=== PATIENT | female | born 1945 | race Caucasian/White ===

== ENCOUNTER → 2016-08-05 | Outpatient (CLI) | payer BC, MEDICARE | END | disposition home or self-care (01) | LOC: GMAM 14:25 | PROVIDERS: ATTEND Family Medicine | DX: N39.0 Urinary tract infection, site not specified (principal) ==

== ENCOUNTER → 2016-11-02 | Outpatient (CLI) | payer BC, MEDICARE | END | disposition home or self-care (01) | LOC: GMAM 16:42 | PROVIDERS: ATTEND Family Medicine | DX: D64.9 Anemia, unspecified (principal); R50.9 Fever, unspecified ==

== ENCOUNTER → 2017-01-05 | Outpatient (CLI) | payer BC, MEDICARE ==
--- NOTE | 2017-01-05 18:14 | CT ---
EXAM DESCRIPTION: CT ABDOMEN AND PELVIS WITHOUT AND WITH CONTRAST CLINICAL HISTORY: GENERALIZED ABDOMINAL PAIN COMPARISON: None Available. TECHNIQUE: CT of the abdomen and pelvis are performed prior to and during IV bolus administration of 100 mL of Isovue 300. Oral contrast does not appear to been administered with a faint radiopaque material noted within the right colon only This exam was performed according to our departmental dose-optimization program, which includes automated exposure control, adjustment of the mA and/or kV according to patient size and/or use of iterative reconstruction technique. FINDINGS: The lung bases are clear and there is no evidence of free abdominal air or abdomen or pelvic fluid. Anastasia noncontrast imaging demonstrates surgical absence of the gallbladder and no evidence of renal obstruction or calculi. Left colonic diverticulosis is present without evidence of severe diverticulitis. Mild inflammatory changes pericolic in the left lateral pelvis suggest mild diverticulitis of the proximal descending colon. No perforation or phlegmon or abscess is seen. Venous imaging demonstrates a small hiatal hernia with a small normal spleen and mild diffuse fatty infiltration of the otherwise normal-appearing liver. The pancreas normally enhances and the aorta and retroperitoneum and vena cava are unremarkable. The kidneys normally enhance. Localized moderate inflammatory changes with colonic wall thickening and pericolic inflammation and modest diverticulosis consistent with focal reticulitis of the proximal sigmoid colon is present with diverticula noted both proximal and distal to this point. No drainable fluid collection is evident. The uterus is surgically absent. Delayed imaging demonstrates normal renal function with layering contrast in the bladder. Small bowel caliber is normal without evidence of bowel obstruction. Anterior abdominal wall is unremarkable grade 1 spondylolisthesis of L5 on S1 is evident without bony destructive changes. Sagittal and coronal reconstructions were not obtained on this study. IMPRESSION: 1. Localized changes of acute diverticulitis of the proximal sigmoid colon with colic and pericolic inflammation without drainable abscess or fluid collection or free abdominal air. Moderate diverticulosis of the remainder of the left side of the colon is noted. 2. Surgical absence of the gallbladder and fatty replaced liver very mild with a small retrocardiac hiatal hernia. 3. Surgical absence of the uterus without adnexal mass or pelvic fluid collection. Electronically signed by: Dhruv Way MD 01/05/2017 6:12 PM CDT
== END | disposition home or self-care (01) ==
LOC: GMA 15:57
PROVIDERS: ATTEND Physician Assistant
DX: R10.84 Generalized abdominal pain (principal)

== ENCOUNTER 2017-01-07 09:30 | Inpatient (IN) | payer BC, MEDICARE ==
--- NOTE | 2017-01-07 09:37 | HP ---
HISTORY OF PRESENT ILLNESS: This 71-year-old, white female was admitted to the hospital as a direct admit from Dr. Barreto's office because of worsening abdominal pain. She apparently awoke at 12:30 AM two nights ago with abdominal pain across the lower abdomen, more serious and more tender on the left side than the right. This has developed into decreased appetite as well as a temperature of 102 degrees as of yesterday. She was seen in the clinic later on the afternoon of the day of onset and had a CT scan of the abdomen because of the abdominal showing acute diverticulitis involving the proximal sigmoid colon. No evidence of rupture and no clinical evidence of bleeding was evident. She was started on Flagyl and Cipro p.o. as an outpatient in an effort to try to assist with the resolution. Her condition has subsequently become worse. Her white count has gone from 8,000 up to 13,000. She vomited earlier this morning after attempting to get some of her medicines down. Past history reveals the presence of diverticulosis on a previous CT scan and also documented with colonoscopy by Dr. Fletcher in 2014. The patient is admitted to the hospital having failed outpatient treatment and to have further investigation and supportive care with GI rest, IV supplementation and analgesia as needed. PAST MEDICAL HISTORY: 1. Hypertension. 2. Mini strokes in the past. She has had a workup for her strokes and has not showing anything other than that she is now taking Plavix and aspirin prophylactically. 3. Urinary tract infections in the past. PAST SURGICAL HISTORY: 1. Cholecystectomy four [address] Lowery. 2. Hysterectomy in 1984. 3. Tubal ligation in 1966. 4. Four pregnancies and three deliveries with one miscarriage. CURRENT MEDICATIONS: Please refer to the nursing list for a list of verified medications taken at home. ALLERGIES: NORCO, TRAMADOL. FAMILY HISTORY: Positive for pancreatic cancer as well as lung cancer and coronary artery disease. SOCIAL HISTORY: She works in an office. She stopped smoking in 1983. REVIEW OF SYSTEMS: GENERAL: Weight has been going up a little bit recently. Fever is noted with some associated chills. HEENT: Decreased hearing requiring hearing aids, but vision is good. LUNGS: Mild shortness of breath upon exertion. No significant cough or hemoptysis. CARDIOVASCULAR: No palpitations or chest pains. GASTROINTESTINAL: Lower abdominal pain, more on the left than the right. Decreased appetite. Nausea and vomiting worsening today even with outpatient treatment for diverticular disease. GENITOURINARY: History of urinary tract infections without any significant symptoms. NEUROLOGIC: No significant headaches, but she is a little more tired than usual. PHYSICAL EXAMINATION: General: Awake and alert. Mild distress with abdominal pain. HEENT: No significant abnormalities. NECK: Supple, without bruits. LUNGS: Clear without rhonchi. HEART: Regular rhythm without gallops. No chest wall tenderness. ABDOMEN: Very tender LLQ without rebound. No masses. Decreased bowel tones. No organomegaly. NEURO: Alert. Mild distress. No focal neuro deficits. LABORATORY: Laboratory studies are pending with most recent studies showing urinalysis with a trace of blood. C-reactive protein 1.7. Hemoglobin 11.3, white count up to 13.6 with 82% neutrophils. BUN 14, creatinine 0.7, sodium 139 , potassium 4, CO2 28. Glucose 101. RADIOLOGY: CT scan recently performed two days ago revealed localized involvement of the proximal sigmoid with diverticulitis without evidence of abscess formation or perforation at this time. Further followup suggested. ASSESSMENT: 1. Acute abdominal pain. 2. Acute diverticulitis noted on CT scan of two days ago, having failed outpatient therapy and requiring vigorous rest with fluid supplementation and parenteral antibiotic therapy in an effort to treat conservatively. 3. History of hypertension. 4. 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 5. Recent febrile illness. 6. Vomiting, onset earlier today, probably secondary to the diverticulitis. PLAN: We will continue supportive care. The patient placed NPO with ice chips. IV supplementation in the meantime and continue with parenteral Levaquin and Flagyl for conservative treatment. Condition discussed with Dr. Lowery and recheck in the morning. If abnormal x-rays are noted, then consider a repeat CT scan to further evaluate for complications of the diverticular process. #[id number] [facility]
[2017-01-07] MEDS ORDERED: LEVALBUTEROL NEBS 1.25 MG/3 ML VIAL INH PRN (10:57)
[2017-01-07] MEDS ORDERED: ACETAMINOPHEN SUPPOSITORY 650 MG PR PRN (10:57)
[2017-01-07] MEDS ORDERED: SODIUM CHLORIDE 0.9% (FLUSH) 10 ML SYG IV PRN (10:57)
[2017-01-07] MEDS ORDERED: IV SET AND CAP CHANGE INJ INJ SCH (11:00)
[2017-01-07] MEDS ORDERED: ALPRAZolam 0.25 MG TAB PO PRN (11:02)
[2017-01-07] MEDS ORDERED: SUCRALFATE 1 GM TAB PO SCH (11:30)
[2017-01-07] MEDS ORDERED: metroNIDAZOLE IV PREMIX 500MG 100 ML IVPB ONE ×2 (11:31→19:53)
[2017-01-07] MEDS: KCL 20 MEQ/NS 1,000 ML IVS PRN ×2 (11:44→22:11)
[2017-01-07] MEDS: metroNIDAZOLE IV PREMIX 500MG 500 MG in PREMIX BAG 1 BAG IVPB SCH ×2 (11:46→20:02)
[2017-01-07] MEDS: PANTOPRAZOLE SODIUM IV 40 MG VIAL IV SCH (11:48)
[2017-01-07] MEDS: ENOXAPARIN SODIUM 30 MG/0.3 ML SYG SUBCU SCH (11:53)
[2017-01-07] MEDS: HYDROmorphone HCL INJ 2 MG/ML VIAL IV PRN ×2 (12:15→22:00)
[2017-01-07] MEDS: ONDANSETRON INJ 4 MG/2 ML VIAL IV PRN ×2 (12:15→21:53)
[2017-01-07] MEDS ORDERED: levoFLOXacin 500MG IV 100 ML IVPB ONE (13:31)
[2017-01-07] MEDS: levoFLOXacin 500MG IV 500 MG in PREMIX BAG 1 BAG IVPB SCH (13:34)
--- NOTE | 2017-01-07 13:50 | PCM.CORE ---
Physician DVT/VTE - Prophylaxis Currently: Patient already on anticoagulation therapy - Nurse DVT Assessment & Total Each Risk Factor Represents 2 Points: Age 60-74 DVT Assessment Score: 2 - 3-4 High Risk Treatments: Sequential Compression Device
[2017-01-07] MEDS ORDERED: diphenhydrAMINE HCL 25 MG CAP PO PRN ×2 (17:36→17:41)
[2017-01-07] MEDS: KETOROLAC TROMETHAMINE INJ 30 MG/ML VIAL IV PRN (18:03)
[2017-01-08] MEDS ORDERED: metroNIDAZOLE IV PREMIX 500MG 100 ML IVPB ONE ×3 (02:51→19:26)
[2017-01-08] MEDS: metroNIDAZOLE IV PREMIX 500MG 500 MG in PREMIX BAG 1 BAG IVPB SCH ×3 (03:01→19:53)
[2017-01-08] MEDS: PANTOPRAZOLE SODIUM IV 40 MG VIAL IV SCH (05:48)
--- NOTE | 2017-01-08 06:36 | RAD ---
Procedure: XR CHEST 2 VIEWS Exam Date: 01/08/2017 Ordering Provider: GERARDO JUNE Clinical Indication: abd pain Comparison: 08/14/2013 Findings: Stable defibrillator. Cardiac silhouette: Normal Pulmonary vasculature : Normal Mediastinal contour: Normal Aortic contour: Aortic calcification Focal lung consolidation: None Pleural effusion: None. Biapical pleural scarring. Pneumothorax: None Acute bony or soft tissue abnormality: None Impression: 1. No acute abnormalities in the chest. Electronically signed by: Lars Forman MD 01/08/2017 6:35 AM CDT
--- NOTE | 2017-01-08 06:38 | RAD ---
Procedure: XR ABDOMEN 2 VIEWS SUPINE ERECT Exam Date: 01/08/2017 Ordering Provider: GERARDO UJNE MD Clinical Indication: diverticulosis Comparison: 01/05/2017 Findings: Cholecystectomy clips. There is no small or large bowel distention. There is no pneumoperitoneum. There are no suspicious calcifications. There is no acute skeletal abnormality. Scoliosis. Impression: 1. No acute findings. Electronically signed by: Lars Forman MD 01/08/2017 6:37 AM CDT
[2017-01-08] MEDS ORDERED: ACETAMINOPHEN 325 MG TAB PO PRN (08:38)
[2017-01-08] MEDS ORDERED: ACETAMINOPHEN 325 MG TAB ONE (08:39)
[2017-01-08] MEDS: KCL 20 MEQ/NS 1,000 ML IVS PRN ×2 (08:52→21:33)
[2017-01-08] MEDS: VALSARTAN 80 MG TAB PO SCH (09:11)
[2017-01-08] MEDS: SERTRALINE HCL 50 MG TAB PO SCH (09:12)
[2017-01-08] MEDS: ENOXAPARIN SODIUM 30 MG/0.3 ML SYG SUBCU SCH (09:12)
[2017-01-08] MEDS: ONDANSETRON INJ 4 MG/2 ML VIAL IV PRN (10:28)
[2017-01-08] MEDS: KETOROLAC TROMETHAMINE INJ 30 MG/ML VIAL IV PRN (10:31)
[2017-01-08] MEDS: HYDROmorphone HCL INJ 2 MG/ML VIAL IV PRN (11:32)
[2017-01-08] MEDS ORDERED: levoFLOXacin 500MG IV 100 ML IVPB ONE (13:09)
[2017-01-08] MEDS: levoFLOXacin 500MG IV 500 MG in PREMIX BAG 1 BAG IVPB SCH (13:22)
[2017-01-08] MEDS: ACETAMINOPHEN W/COD #3 TAB 1 EA TAB PO PRN (16:00)
[2017-01-08] MEDS: PANTOPRAZOLE SODIUM TAB 40 MG PO SCH (16:42)
--- NOTE | 2017-01-08 17:26 | PN ---
DATE: 01/08/17 SUBJECTIVE: The patient is sitting up in the bed. She likes the lights on in the room. She is able to rest. Her pain is a little better and more focused into the left lower quadrant of the abdomen compared to across the lower aspects of the abdomen as yesterday. No vomiting. She has been basically NPO with ice chips and now is ready to try a liquid diet. OBJECTIVE: Afebrile, blood pressure 145/78, pulse 66, pulse oximetry 99% on room air. GENERAL: The patient is awake, alert and communicative. No acute distress at this time though dynamo tender in her lower left quadrant of the abdomen. HEART: Tones are regular. LUNGS: Clear. ABDOMEN: Diminished bowel tones present. friction paint machine tender especially in the left lower quadrant. No rebound tenderness at this time. No bowel movements yet. LABORATORY: White count 4,600 which is down from 13,600 yesterday, hemoglobin has come down from 11.3 yesterday to 9.1 today. Liver enzymes have gone up, ALT from 55 to 101 and AST has gone from 49 to 85 up to 146 today over the last couple of days. C reactive protein is 0.8. Lipase normal at 20. Urine is clean. No cultures obtained. Abdominal and chest x-rays failed to show any significant abnormalities at this time. The patient is having some pain and will try some Tylenol with codeine which apparently she has tolerated nicely in the past. ASSESSMENT: 1. Acute abdominal pain. 2. Acute diverticulitis documented by radiographic CT scan and has failed outpatient therapy requiring parenteral fluid supplementation and antibiotic therapy in order to continue to treat conservatively in an effort to avoid surgical intervention. 3. History of elevated liver enzymes, possibility of underlying hepatitis to be observed and evaluated for. 4. Significant leukocytosis showing improvement. 5. Anemia with a normocytic normochromic presentation. 6. History of hypertension. 7. History of recurring many cerebrovascular accidents of undetermined etiology with minimal residual deficiencies. 8. Recent febrile illness. 9. Vomiting earlier on the day of admission probably secondary to the abdominal pain with associated diverticulitis. PLAN: Will advance the diet from NPO to a clear liquid and continue to observe. Will check for stool occult blood. Try Tylenol #3 since she has taken it nicely in the past for headache pain, etc. Repeat lab, including a hepatitis panel and repeat hepatic panel tomorrow. Close followup of the anemia and rule out gastrointestinal bleed. Continue close observation and stabilization. Increase activity level as tolerated. #[id number] [facility]
[2017-01-08] MEDS ORDERED: BIFIDOBACTERIUM INFANTIS 4 MG CAP ONE (19:26)
[2017-01-08] MEDS: BIFIDOBACTERIUM INFANTIS 4 MG CAP PO SCH (21:22)
[2017-01-09] MEDS ORDERED: metroNIDAZOLE IV PREMIX 500MG 100 ML IVPB ONE ×2 (02:29→07:30)
[2017-01-09] MEDS: metroNIDAZOLE IV PREMIX 500MG 500 MG in PREMIX BAG 1 BAG IVPB SCH ×2 (02:31→11:24)
[2017-01-09] MEDS: ONDANSETRON INJ 4 MG/2 ML VIAL IV PRN (03:57)
[2017-01-09] MEDS: PANTOPRAZOLE SODIUM TAB 40 MG PO SCH ×2 (06:01→16:41)
[2017-01-09] MEDS: KCL 20 MEQ/NS 1,000 ML IVS PRN ×2 (07:40→17:40)
[2017-01-09] MEDS: SERTRALINE HCL 50 MG TAB PO SCH (08:58)
[2017-01-09] MEDS: VALSARTAN 80 MG TAB PO SCH (08:59)
[2017-01-09] MEDS: BIFIDOBACTERIUM INFANTIS 4 MG CAP PO SCH ×2 (08:59→21:25)
[2017-01-09] MEDS: ENOXAPARIN SODIUM 30 MG/0.3 ML SYG SUBCU SCH (09:00)
[2017-01-09] MEDS ORDERED: levoFLOXacin 500MG IV 100 ML IVPB ONE (11:28)
[2017-01-09] MEDS ORDERED: MEROPENEM 1 GM VIAL IVPB ONE ×2 (12:18→19:07)
[2017-01-09] MEDS ORDERED: SODIUM CHL 0.9% 50ML MIN-BAG+ 50 ML IVPB ONE ×2 (12:18→19:07)
[2017-01-09] MEDS: MEROPENEM 1 GM in SODIUM CHL 0.9% 50ML MIN-BAG+ 50 ML IVPB SCH ×2 (12:22→20:13)
[2017-01-09] MEDS: ACETAMINOPHEN W/COD #3 TAB 1 EA TAB PO PRN (14:19)
--- NOTE | 2017-01-09 20:14 | PN ---
DATE: SUPERVISING PHYSICIAN: Dhruv Barreto M.D. SUBJECTIVE: The patient is resting in bed. She says her abdominal pain is less than when she came in, however, she says she feels worse than when she presented initially. She continues to have some mild nausea and a severe headache and a metallic taste that makes her feel nauseated. She is noting that generally these are associated more intensely around when she gets her Flagyl. She remains afebrile. She has tolerated a clear liquid diet. OBJECTIVE: VITAL SIGNS: Temperature 98.3, pulse 76, blood pressure 156/75, respirations 18, satting 98% on room air. I's and O's show a positive balance of 2335 with 3700 in, 1350 out. She has had 2 bowel movements. Weight 66.9 kg. CHEST: Lungs are clear to auscultation. HEART: Regular rate and rhythm. ABDOMEN: Soft, continue tenderness over the left lower quadrant to deep palpation, although she says it is more localized today and not as quite severe. EXTREMITIES: No clubbing, cyanosis or edema. NEUROLOGIC: She is alert and oriented times three. LABORATORY: White count remains normal now at 5.3 with hemoglobin 9.3, hematocrit 28.2, platelet count 229,000. Differential shows to be within normal limits. Chemistries show normal electrolytes with potassium 4.1, BUN 7, creatinine 0.61, calcium 8.1. Liver functions remain elevated although showing improvement. AST is down to 65, ALT santana to 74, alkaline phosphatase 41. She has had 2 occult blood stools that were positive. Hepatitis panel is pending. There are no additional radiographic studies today. ASSESSMENT: 1. Acute diverticulitis documented on radiographic CT scan having failed to respond to outpatient treatment now requiring continued parenteral antibiotics to include supplementation and ongoing antibiotic therapy in efforts to treat conservatively to avoid any surgical intervention. 2. Acute abdominal pain secondary to number 1. 3. Persistent nausea without any emesis with elevated liver functions likely secondary to adverse reaction to Flagyl. 4. Persistent headache with the patient having a history of migraines. 5. History of elevated liver enzymes needing to rule out hepatitis felt to be more likely secondary to administration of Flagyl, although showing improvement. 6. Significant leukocytosis now normalized. 7. Anemia with a normocytic normochromic presentation likely secondary to chronic illness. 8. History of hypertension, stable. 9. History of recurrent cerebrovascular accident of undetermined etiology with minimal residual deficiencies. 10. Recent febrile illness. PLAN: The patient has been tolerating her diet, although she continues to be nauseated which appears to be associated with the administration of Flagyl. She is also complaining of a bad metallic taste which appears to be associated with the administration of Flagyl. She is also complaining of a bad metallic taste along with a severe headache, all of which are associated sometimes with Flagyl, therefore will change her medication regimen from Flagyl and Levaquin to Meropenem in efforts to decrease her symptomology. Will continue to monitor liver functions tomorrow with repeat liver functions and BMP. I did advance her diet to a full liquid. If she is tolerating a full liquid diet tomorrow we can hopefully advance her diet to a low residual diet and anticipate discharge possibly Wednesday with continuation of antibiotic therapy. In consideration for the adverse reaction to Flagyl, we can certainly send the patient home either on Augmentin or Bactrim if antibiotic continuation is needed, however, the patient has had some issues with taking oral antibiotics, although she was having again the nausea with taking her Flagyl. Will need to closely monitor. Will continue to monitor the patient closely and treat appropriately until discharge. #[id number] [facility]
[2017-01-10] MEDS ORDERED: MEROPENEM 1 GM VIAL IVPB ONE (03:13)
[2017-01-10] MEDS ORDERED: SODIUM CHL 0.9% 50ML MIN-BAG+ 50 ML IVPB ONE (03:13)
[2017-01-10] MEDS: KCL 20 MEQ/NS 1,000 ML IVS PRN (03:20)
[2017-01-10] MEDS: MEROPENEM 1 GM in SODIUM CHL 0.9% 50ML MIN-BAG+ 50 ML IVPB SCH (03:32)
[2017-01-10] MEDS: PANTOPRAZOLE SODIUM TAB 40 MG PO SCH (06:05)
[2017-01-10] MEDS ORDERED: SODIUM CHLORIDE 0.9% (FLUSH) 10 ML SYG IV ONE (07:19)
[2017-01-10 08:12] VITALS: BP 128/77; TEMP 98.7; O2SAT 97
[2017-01-10] MEDS: VALSARTAN 80 MG TAB PO SCH (08:47)
[2017-01-10] MEDS: BIFIDOBACTERIUM INFANTIS 4 MG CAP PO SCH (08:47)
[2017-01-10] MEDS: SERTRALINE HCL 50 MG TAB PO SCH (08:47)
[2017-01-10] MEDS: ENOXAPARIN SODIUM 30 MG/0.3 ML SYG SUBCU SCH (08:49)
[2017-01-10] MEDS ORDERED: SODIUM CHLORIDE 0.9% (FLUSH) 10 ML SYG IV SCH (09:00)
--- NOTE | 2017-01-20 15:05 | DS ---
SUPERVISING PHYSICIAN: Dhruv Barreto MD DISCHARGE DIAGNOSIS: 1. Acute diverticulitis documented on radiographic CT scan having failed to respond to outpatient treatment, requiring continued parenteral antibiotics on admission to include supplementation and ongoing antibiotic therapy in efforts to treat conservatively to avoid any surgical intervention, having responded well to conservative treatment requiring no surgical intervention. 2. Acute abdominal pain secondary to #1. 3. Persistent nausea without any emesis with elevated liver enzymes, felt to be secondary to adverse reaction to Flagyl, showing improvement after stopping Flagyl. 4. Persistent headache with the patient having a history of migraines, also felt to be exacerbated by Flagyl. 5. History of elevated liver enzymes with hepatitis panel pending at discharge , again felt to be secondary to Flagyl adverse effects, showing improvement after stopping Flagyl. 6. Significant leukocytosis, normalized prior to discharge. 7. Anemia with a normocytic/normochromic presentation likely secondary to chronic illness. 8. History of hypertension, stable. 9. History of recurrent cerebrovascular accidents of undetermined etiology with minimal residual deficiencies. 10. Recent febrile illness. HISTORY OF PRESENT ILLNESS: Ms. Lanza is a 71-year-old, female patient who was admitted to the hospital as a direct admit from Dr. Barreto's office because of worsening abdominal pain. She apparently awoke at 12:30 AM two nights previous with abdominal pain across the lower abdomen, more serious and more tender on the left side than the right. This had developed decreased appetite as well as a temperature of 102 degrees at home. She was seen in the clinic later on the afternoon of the day of onset and had a CT scan of the abdomen showing acute diverticulitis involving the proximal sigmoid colon. There was no evidence of rupture and no clinical evidence of bleeding was evident. She was started on Flagyl and Cipro p.o. as an outpatient in an effort to try to assist with the resolution. Her condition has subsequently become worse. Her white count has gone from 8,000 up to 13,000. She vomited earlier the morning of admission after attempting to get some of her medicines down. Past history reveals the presence of diverticulosis on a previous CT scan and also documented with colonoscopy by Dr. Fletcher in 2014. The patient was admitted to the hospital having failed outpatient treatment and to have further investigation and supportive care with GI rest, IV supplementation and analgesia as needed. She was admitted in stable condition. LABORATORY: White count on admission was 4.6. At discharge, it was unchanged at 4.6. Hemoglobin and hematocrit were stable and at discharge was hemoglobin 9.0 and hematocrit 27.1. Platelet count 221,000. RBC indices showed normocytic /normochromic presentation. Differential was within normal limits. Chemistries showed electrolytes initially on admission were within normal limits. These remained within normal limits and at discharge, potassium was 4.3 , BUN less than 5, creatinine 0.61, calcium 8.0 to 7.9. Liver functions showed elevation of AST and ALT with AST 146 initially and ALT 101. Prior to discharge , it normalized to AST 39, ALT 50, total bilirubin 0.53. C-reactive protein was within normal limits at 0.8. Lipase normal at 20. Urinalysis was within normal limits. She had two occult blood stools that were positive. Serology showed hepatitis panel that was nonreactive for A, B and C. Please refer to that report for full details. MICROBIOLOGY: No specimens submitted. RADIOLOGY: She only had one abdominal x-ray on admission and showed no acute findings per radiologic interpretation. She also had a chest x-ray, two view, that showed no acute abnormalities in the chest per radiologic interpretation. HOSPITAL COURSE: Ms. Lanza was admitted as noted in history of present illness for diverticulitis as noted on CT. She was started on antibiotics that included Flagyl and Levaquin. She had persistent symptoms and it was noted that she was having elevated liver enzymes and after she would be administered Flagyl, her symptoms would worsen. Therefore, she was transitioned from Flagyl to meropenem and Levaquin was discontinued. She did well clinically and showed improvement in her laboratory studies as well as was no longer having any pain at time of discharge. Hemodynamically, she was stable. She was afebrile. Temperature at discharge was 98.7, blood pressure 128/77, saturation 97% on room air. It was felt she was clinically improved well enough to be followed in the outpatient setting. PLAN: The patient was discharged one 01/10/17 with instructions to have close clinical followup with Dr. Barreto in 7 days or sooner. She was to resume her home medications as instructed and start new prescriptions as directed. She was instructed to return to the hospital should she have any worsening symptoms , increasing pain, nausea or vomiting. At discharge new prescriptions included: 1. Augmentin 875 mg twice daily, #20. 2. Align 4 mg daily. DIET AT DISCHARGE: Low residual diet as tolerated. ACTIVITY: Increase as tolerated. CONDITION AT DISCHARGE: Stable and improved. #[id number] [facility]
== END 2017-01-10 09:20 | disposition home or self-care (01) | DRG 392 ==
LOC: MS 09:30
PROVIDERS: ADMIT Emergency Medicine; ATTEND Nurse Practitioner Family
DX: K57.32 Diverticulitis of large intestine without perforation or abscess without bleeding (principal); R74.8 Abnormal levels of other serum enzymes; R51 Headache; D63.8 Anemia in other chronic diseases classified elsewhere; T37.3X5A Adverse effect of other antiprotozoal drugs, initial encounter; I10 Essential (primary) hypertension; Z86.73 Personal history of transient ischemic attack (TIA), and cerebral infarction without residual deficits; Z88.5 Allergy status to narcotic agent; Z87.891 Personal history of nicotine dependence; Y92.230 Patient room in hospital as the place of occurrence of the external cause

== ENCOUNTER → 2017-02-15 | Outpatient (CLI) | payer BC, MEDICARE | END | disposition home or self-care (01) | LOC: GMAM 18:09 | PROVIDERS: ATTEND Family Medicine | DX: R53.83 Other fatigue (principal); Z00.00 Encounter for general adult medical examination without abnormal findings; D64.9 Anemia, unspecified ==

== ENCOUNTER → 2017-02-18 | Outpatient (CLI) | payer BC, MEDICARE ==
--- NOTE | 2017-02-18 16:48 | MRI ---
EXAM DATE: 02/18/2017 12:00 AM CDT. PROCEDURE: MR BRAIN WITHOUT IV CONTRAST. INDICATION: CEREBROVASCULAR DISEASE. COMPARISON: CT head 2013. TECHNIQUE: Multiplanar multisequence images of the brain were acquired without the administration of intravenous contrast. FINDINGS: No acute infarct or intracranial hemorrhage. No mass, mass effect, or midline shift. Mild scattered T2/flair hyperintensities within the subcortical and deep white matter of the supratentorial brain, most prominent in the frontal lobes, compatible with chronic microvascular angiopathy. Normal midline structures including the pituitary, corpus callosum, and cerebellar tonsils. Dural calcification along the anterior interhemispheric falx. Mild generalized brain volume loss. No hydrocephalus. Internal carotid and vertebrobasilar flow voids are identified. Unremarkable orbits, paranasal sinuses, mastoid air cells, and calvarium. IMPRESSION: No acute intracranial abnormality. Mild chronic microvascular angiopathy. Mild generalized brain volume loss. Electronically signed by: Isidro Gilliland MD 02/18/2017 4:47 PM CDT
== END | disposition home or self-care (01) ==
LOC: MRI 13:59
PROVIDERS: ATTEND Family Medicine
DX: I67.9 Cerebrovascular disease, unspecified (principal); I10 Essential (primary) hypertension; E78.2 Mixed hyperlipidemia; M85.89 Other specified disorders of bone density and structure, multiple sites; D64.9 Anemia, unspecified; R53.83 Other fatigue; E55.9 Vitamin D deficiency, unspecified

== ENCOUNTER → 2017-02-19 | Outpatient (CLI) | payer BC, MEDICARE | END | disposition home or self-care (01) | LOC: GMAM 12:41 | PROVIDERS: ATTEND Family Medicine | DX: R82.5 Elevated urine levels of drugs, medicaments and biological substances (principal); R82.99 Other abnormal findings in urine ==

== ENCOUNTER 2017-06-24 14:03 | Inpatient (IN) | payer BC, MEDICARE ==
--- NOTE | 2017-06-24 14:05 | HP ---
SUPERVISING PHYSICIAN: Isidro De Anda M.D. CHIEF COMPLAINT: Abdominal pain. HISTORY OF PRESENT ILLNESS: This is a 71 year-old female patient who was evaluated at [facility] for suprapubic abdominal pain. She saw BANDAR Ceja, at [facility]. She reports that the pain began about 3 weeks ago, although she had a bout of diverticulitis back in December of 2016. Her pain has not completely gone away since then and she has had 2 to 15 bowel movements daily since that time. She sees Dr. Fletcher for her GI. For the past 3 days she has had a temperature of 99.2 to 100.2. She has had minimal nausea but she has had 2 to 15 stools daily. Although she has kept things down, she has been unable to eat anything and she has taken a small amount of fluids. In the office today, she had a CT of the abdomen done and it showed uncomplicated early mild sigmoid diverticulitis. Her electrolytes were basically within normal limits, except her osmolality was 272.8 and her C reactive protein was 1.8. Her CBC had a white count of 8.1, hemoglobin 11.5, hematocrit 34.8. In her past hospitalization in December of last year, she had a reaction to Flagyl and was treated with Merrem, and then sent home on Augmentin. I was called for admission to the hospital. PAST MEDICAL HISTORY: 1. Hypertension. 2. Hyperlipidemia. 3. Several transient ischemic attacks. 4. Gastroesophageal reflux disease. 5. Anemia. 6. Essential tremors. 7. Diverticulosis and diverticulitis. PAST SURGICAL HISTORY: 1. Cholecystectomy. 2. Hysterectomy. 3. Dilatation and curettage. 4. Bilateral tubal ligation. OUTPATIENT MEDICATIONS: Per the EMR and awaiting verification. ALLERGIES: CELEXA, HYDROCODONE, TRAMADOL, REGLAN AND FLAGYL. FAMILY HISTORY: Positive for lung cancer, coronary artery disease, hypertension , hyperlipidemia, cerebrovascular accidents. SOCIAL HISTORY: She is . She has 3 children. She has a past history of cigarette smoking but quit in 1983. She denies any ETOH or illicit drug use. REVIEW OF SYSTEMS: Positive for fever up to 100.2. Positive for fatigue. Negative for weight changes. HEENT: Denies ear pain, vision changes, sinus symptoms or sore throat. RESPIRATORY: Denies coughing, wheezing or shortness of breath. CARDIOVASCULAR: Denies chest pain, palpitations or tachycardia. GASTROINTESTINAL: Per History of Present Illness. GENITOURINARY: Denies hematuria, dysuria, polyuria. NEUROLOGIC: Denies headaches, dizziness or seizures. PHYSICAL EXAMINATION: VITAL SIGNS: Temperature 98.2, pulse rate 72, blood pressure 155/85, respiratory rate 16, O2 sat is 98% on room air. GENERAL: This is a 71 year-old female patient who is lying in her hospital bed. She is in no acute distress. HEENT: Normocephalic and atraumatic. Pupils are equal and reactive. Oropharynx is clear. Oral mucous membranes are moist. NECK: Supple without mass. RESPIRATORY: Essentially clear to auscultation bilaterally. CARDIOVASCULAR: Regular rate and rhythm. ABDOMEN: Soft, nondistended. She is moderately tender in the left lower quadrant and the suprapubic area. There is no rebound tenderness. Bowel sounds are positive. EXTREMITIES: No cyanosis, clubbing or edema. NEUROLOGIC: She is awake, alert and oriented times three. LABORATORY: Labs and films are as per the History of Present Illness. ASSESSMENT: 1. Acute abdominal pain, especially left lower quadrant and suprapubic area. 2. Acute diverticulitis as noted on CT exam. 3. Hypertension. 4. History of cerebrovascular accidents. 5. Gastroesophageal reflux disease. PLAN: We will admit the patient to the hospital. I have started her on Levaquin and Clindamycin. I have consulted Dr. Lowery. She will be on clear liquids and she will have some lab and abdominal x-ray in the morning. We will give her 2 doses of MiraLAX tonight. I have started her on Protonix for ulcer prophylaxis and Lovenox for DVT prophylaxis. We will follow the patient closely and followup as needed. Dr. De Anda is the collaborating physician available for consultation. #[id number] [facility]
[2017-06-24] MEDS ORDERED: SODIUM CHLORIDE 0.9% (FLUSH) 10 ML SYG IV PRN (14:59)
[2017-06-24] MEDS ORDERED: IV SET AND CAP CHANGE INJ INJ SCH (15:00)
[2017-06-24] MEDS ORDERED: ONDANSETRON INJ 4 MG/2 ML VIAL IV PRN (15:02)
[2017-06-24] MEDS: DEX 5% W/NACL 0.9% 1000ML 1,000 ML IVS PRN (15:28)
[2017-06-24] MEDS ORDERED: ALPRAZolam 0.25 MG TAB PO PRN (17:09)
[2017-06-24] MEDS ORDERED: levoFLOXacin 500MG IV 100 ML IVPB ONE (17:23)
[2017-06-24] MEDS: POLYETHYLENE GLYCOL 3350 17 GM PCKT PO SCH ×2 (17:26→20:33)
[2017-06-24] MEDS: levoFLOXacin 500MG IV 500 MG in PREMIX BAG 1 BAG IVPB SCH (17:26)
[2017-06-24] MEDS: PANTOPRAZOLE SODIUM IV 40 MG VIAL IV SCH (17:26)
[2017-06-24] MEDS ORDERED: CLINDAMYCIN IV 900MG 50 ML IVPB ONE (19:16)
[2017-06-24] MEDS: CLINDAMYCIN IVPB SCH (19:38)
[2017-06-24] MEDS: SODIUM CHLORIDE 0.9% IVPB SCH (19:38)
--- NOTE | 2017-06-24 19:39 | CONS ---
DATE OF CONSULTATION: 06/24/17 HISTORY OF PRESENT ILLNESS: The patient is a 71 year-old female who presented to the clinic at [facility] complaining of worsening lower abdominal pain basically in both lower quadrants. She denies nausea or vomiting, or significant fever or chills. Basically, the patient has had multiple loose stools for weeks and believes that she has really never gotten over the diverticulitis that she was treated for in December. PAST MEDICAL HISTORY: 1. Gastroesophageal reflux disease. 2. Diverticulitis. 3. Depression. 4. Spondylolisthesis. 5. Status post cerebral artery occlusion with infarct. 6. Transient ischemic attacks. 7. Essential tremors. 8. Was at one time treated for Parkinsonism. PAST SURGICAL HISTORY: 1. Cholecystectomy in the past. 2. Hysterectomy. 3. Bilateral tubal ligation. 4. Colonoscopy. CURRENT MEDICATIONS: ALLERGIES: FAMILY HISTORY: Positive for carcinoma of the lung, coronary artery disease and she has a sister with lupus. SOCIAL HISTORY: The patient is . Works in the [employer] business. She quit smoking in 1983 but her does continue to smoke. She does not use alcohol. REVIEW OF SYSTEMS: Noncontributory, specifically there is no chest pain, shortness of breath. No upper respiratory symptoms. She denies urinary symptoms and denies hematemesis or melena. There has been no significant weight loss. PHYSICAL EXAMINATION: LABORATORY: White count 8.1, hemoglobin 11.5. Normal indices. Platelet count 363,000, 74% neutrophils. Creatinine 0.64, potassium 4. Liver functions are within normal limits. C reactive protein is 1.8. Urinalysis is pending. RADIOLOGY: CT scan revealed sigmoid diverticulitis and a large amount of stool in both the rectum, right and left transverse colon. IMPRESSION: 1. Lower abdominal pain with apparent inflammatory process in the sigmoid colon in the same area of her diverticulitis from December. She has stool throughout the abdomen consistent with obstipation but cannot rule out a stricture or near stricture secondary to the diverticulitis. PLAN: Have discussed the case with Trixie Castro, nurse practitioner for Dr. De Anda , and the plan will be to start her on Levaquin and Clindamycin. Will gently give catharsis from above with MiraLAX and a clear liquid diet with repeat x- rays and lab in the morning. It is significant that she is scheduled to see Dr. Fletcher next Wednesday to set up a repeat coloscopy. Her last colonoscopy was in 2014, but this was prior to the diverticulitis. #[id number] [facility]
[2017-06-24] MEDS ORDERED: diphenhydrAMINE HCL 25 MG CAP ONE (19:45)
[2017-06-24] MEDS ORDERED: ACETAMINOPHEN 500 MG TAB ONE (19:45)
[2017-06-24] MEDS ORDERED: DONEPEZIL HCL 5 MG TAB ONE (19:46)
[2017-06-24] MEDS: BIFIDOBACTERIUM INFANTIS 4 MG CAP PO SCH (20:30)
[2017-06-24] MEDS: EZETIMIBE 10 MG TAB PO SCH (20:33)
[2017-06-24] MEDS: ENOXAPARIN SODIUM 40 MG/0.4 ML SYG SUBCU SCH (20:34)
[2017-06-24] MEDS ORDERED: NON-FORMULARY MEDICATION 1 EA MIS (Diphenhydramine-Acetaminophen [Tylenol Pm Extra Strengt PO SCH (21:00)
[2017-06-24] MEDS ORDERED: NON-FORMULARY MEDICATION 1 EA MIS (Donepezil Hydrochloride [Aricept] 10 MG) PO SCH (21:00)
[2017-06-25] MEDS: SUCRALFATE 1 GM TAB PO SCH ×2 (00:52→06:48)
[2017-06-25] MEDS: DEX 5% W/NACL 0.9% 1000ML 1,000 ML IVS PRN ×2 (01:14→09:10)
[2017-06-25] MEDS ORDERED: VALSARTAN 80 MG TAB ONE (07:11)
--- NOTE | 2017-06-25 07:11 | RAD ---
EXAM DESCRIPTION: Abdomen Flat Upright CLINICAL HISTORY: 71 years Female, diverticulitis COMPARISON: None. FINDINGS: There is no free subdiaphragmatic gas or intra-abdominal air-fluid level. There is a moderate amount of colonic stool and gas. No dilated small bowel loops. There is no suspicious intra-abdominal calcification or mass. Surgical clips in the right upper quadrant suggest prior cholecystectomy. [id number] degenerative changes are noted at multiple levels in the thoracolumbar spine. IMPRESSION: No pneumoperitoneum or other acute intra-abdominal abnormality. Electronically signed by: Dwight Andrew MD 06/25/2017 7:10 AM [facility]
[2017-06-25] MEDS ORDERED: ACETAMINOPHEN 325 MG TAB PO ONE (07:45)
[2017-06-25] MEDS ORDERED: CLINDAMYCIN IV 900MG 50 ML IVPB ONE (08:21)
[2017-06-25] MEDS: VALSARTAN 80 MG TAB PO SCH (08:25)
[2017-06-25] MEDS: BIFIDOBACTERIUM INFANTIS 4 MG CAP PO SCH ×2 (08:25→20:29)
[2017-06-25] MEDS ORDERED: CLINDAMYCIN IV 900MG 50 ML IVPB SCH (08:30)
[2017-06-25] MEDS: SODIUM CHLORIDE 0.9% IVPB SCH (08:30)
[2017-06-25] MEDS: CLINDAMYCIN IVPB SCH (08:30)
[2017-06-25] MEDS ORDERED: NON-FORMULARY MEDICATION 1 EA MIS (Rosuvastatin Calcium [Crestor] 20 MG) PO SCH (09:00)
[2017-06-25] MEDS: SUCRALFATE 1 GM/10 ML 1 GM UD PO SCH ×3 (10:47→20:35)
[2017-06-25] MEDS: POLYETHYLENE GLYCOL 3350 17 GM PCKT PO SCH ×3 (10:47→17:18)
--- NOTE | 2017-06-25 14:09 | PN ---
SUPERVISING PHYSICIAN: Isidro De Anda MD DATE: 06/25/17 SUBJECTIVE: The patient is sitting up in her chair in her hospital room. She complains of some fatigue and mild abdominal pain, but her abdominal pain has improved. She also has a headache. Tylenol had helped earlier, but it has not completely gone away. She is tolerated her antibiotics without any problems. She denies any chest pain, nausea, vomiting. OBJECTIVE: VITAL SIGNS: Afebrile. Heart rate 67. Blood pressure 156/79. Respiratory rate 12. O2 saturation 96% on room air. I&O shows intake of 1576 mL with output 750 mL for a positive balance of 872 mL. She has had 7 very, very small liquidy bowel movements. LUNGS: Essentially clear to auscultation bilaterally. CARDIAC: Regular rate and rhythm. GASTROINTESTINAL: Mildly tender to the left lower quadrant, much improved since yesterday. Nondistended. Bowel sounds are positive. EXTREMITIES: No cyanosis, clubbing or edema. NEUROLOGIC: Awake, alert and oriented times three. LABORATORY: WBC 4.5, hemoglobin 9.5, hematocrit 29.1. Electrolytes are basically within normal limits with the exception of calcium slightly low at 8.1. Stool for occult blood is positive. C. difficile is negative for antigen and toxin. Preliminary blood cultures are negative. Abdominal x-ray shows no pneumoperitoneum or other acute intraabdominal abnormality. All other labs and films have been reviewed via the EMR. ASSESSMENT: 1. Acute abdominal pain, especially left lower quadrant and suprapubic area. 2. Acute diverticulitis as noted on CT exam, presently on Levaquin and clindamycin. 3. Hypertension. 4. History of cerebrovascular accident of unknown etiology. 5. Gastroesophageal reflux disease. PLAN: We will continue present supportive care. She is going to receive 3 doses of MiraLAX today as she had minimal results from her 2 doses last night. I will leave the advancement of her diet up to Dr. Lowery. I will also do an abdominal x-ray tomorrow. We will discontinue her IV fluids. She is tolerating her Levaquin and clindamycin without any issues. Anticipate discharge tomorrow or the next day on p.o. Levaquin and clindamycin. She may need a further workup from a GI doctor as one stool guaiac was positive. We will continue to monitor the patient closely and follow as needed. Dr. De Anda is the collaborating physician and available for consultation. [facility][id number] [facility]
[2017-06-25] MEDS: ACETAMINOPHEN W/COD #3 TAB 1 EA TAB PO PRN (14:17)
[2017-06-25] MEDS ORDERED: levoFLOXacin 500MG IV 100 ML IVPB ONE (16:54)
[2017-06-25] MEDS: PANTOPRAZOLE SODIUM IV 40 MG VIAL IV SCH (17:18)
[2017-06-25] MEDS: levoFLOXacin 500MG IV 500 MG in PREMIX BAG 1 BAG IVPB SCH (17:19)
[2017-06-25] MEDS: CLINDAMYCIN IV 900MG 50 ML IVPB SCH (20:06)
[2017-06-25] MEDS: EZETIMIBE 10 MG TAB PO SCH (20:29)
[2017-06-25] MEDS: ENOXAPARIN SODIUM 40 MG/0.4 ML SYG SUBCU SCH (20:35)
[2017-06-25] MEDS ORDERED: DONEPEZIL HCL 5 MG TAB PO SCH (21:00)
[2017-06-25] MEDS ORDERED: diphenhydrAMINE HCL 25 MG CAP PO SCH (21:00)
[2017-06-25] MEDS ORDERED: ACETAMINOPHEN 500 MG TAB PO SCH (21:00)
--- NOTE | 2017-06-26 07:42 | RAD ---
CLINICAL HISTORY:constipation; diverticulitis. :1945. Sex:Female. TECHNIQUE: Supine and upright views of the abdomen. There is no intestinal dilatation. Cholecystectomy clips are noted. There is no mass. There is no free air. There is no opaque calculus. Skeletal structures are unremarkable. The visible lung bases are clear IMPRESSION: 1. No acute radiographic findings.. Electronically signed by: Dario Hill MD 06/26/2017 7:41 AM [facility] Workstation: [id number]
[2017-06-26] MEDS: VALSARTAN 80 MG TAB PO SCH (08:13)
[2017-06-26] MEDS: ACETAMINOPHEN W/COD #3 TAB 1 EA TAB PO PRN (08:13)
[2017-06-26] MEDS: BIFIDOBACTERIUM INFANTIS 4 MG CAP PO SCH (08:13)
[2017-06-26] MEDS: CLINDAMYCIN IV 900MG 50 ML IVPB SCH (08:17)
[2017-06-26] MEDS: SUCRALFATE 1 GM/10 ML 1 GM UD PO SCH ×2 (08:22→12:24)
[2017-06-26 12:24] VITALS: BP 144/81; TEMP 98.4; O2SAT 98
--- NOTE | 2017-06-26 16:30 | DS ---
SUPERVISING PHYSICIAN: Isidro De Anda M.D. DISCHARGE DIAGNOSIS: 1. Acute abdominal pain, especially left lower quadrant and suprapubic area. 2. Acute diverticulitis as noted on CT exam presently on Levaquin and Clindamycin. 3. Hypertension. 4. History of cerebrovascular accident of unknown etiology. 5. Gastroesophageal reflux disease. HISTORY OF PRESENT ILLNESS: This is a 71 year-old female patient who has a history of diverticulitis and was seen in [facility], and evaluated for suprapubic and lower left quadrant abdominal pain. She saw BANDAR Ceja. The pain began about 3 weeks prior to her seeing Taty, although she said that her pain has been ongoing although mild since she had a bout of diverticulitis back in December of 2016. She is to see Dr. Fletcher on June 30 for GI consultation. She has seen him in the past. Her temperature in the past 3 days has been up to 100.2. She has had minimal nausea but she has had 2 to 15 stools daily. Although she has kept things down, she was unable to eat anything and has taken a very small amount of fluids. In the office, she had a CT of the abdomen done that showed uncomplicated early mild sigmoid diverticulitis. Her electrolytes were basically within normal limits except her osmolality was 272.8 and her C reactive protein was elevated at 1.8. White count was 8.1 with hemoglobin 11.5 and hematocrit 34.8. On her past hospitalization in December, she had a reaction to Flagyl, so her Flagyl and Levaquin were discontinued and she was treated with Merrem in the hospital and sent home on Augmentin. I was called for direct admission to the hospital. HOSPITAL COURSE: The patient was placed on Levaquin and Clindamycin. Her Levaquin was given very slowly due to a questionable adverse reaction to fluoroquinolones, but she tolerated the Levaquin without any problem. She was also given Clindamycin, Align as well as fluids and nausea medicine. Her clinical picture improved. She was afebrile. Dr. Lowery was consulted on the case. She was also found to be constipated and she was given several doses of MiraLAX with very minimal results, although today her x-ray is improved from yesterday. Her abdominal pain has mostly resolved. Her lab has stabilized. Her abdominal x-ray revealed no acute processes and she will be discharged home. DISCHARGE PLAN: The patient will be discharged home in stable condition. She is to start a bland diet and advance it as tolerated. Caution was given to her about eating foods that cause abdominal pain and discomfort. She will continue her Clindamycin and Levaquin as well as she will receive some Zofran for her nausea. Dr. Lowery recommended that she take MiraLAX 17 grams 2 times daily for 3 to 4 days and then daily until her appointment with Dr. Fletcher. She is to increase her activity as tolerated and she is to call Dr. Barreto's office or return to the hospital for any further complications or problems. Her followup appointment with Dr. Barreto is n 07/01/17 at 2:15 and her appointment with Dr. Fletcher is on 06/30/17. DISCHARGE MEDICATIONS: 1. Fergon. 2. Diovan. 3. Crestor. 4. Klonopin. 5. Plavix. 6. Sucralfate. 7. Xanax. 8. Tylenol PM. 9. Protonix. 10. [place]-3 fatty acids. 11. Aricept. 12. Aspirin. 13. Zetia. 14. Osteo Bi-Flex joint. 15. Align. 16. Clindamycin. 17. Levaquin. 18. Zofran. 19. Acetaminophen with codeine. 20. MiraLAX. Dr. De Anda is the collaborating physician available for consultation. #[id number] [facility]
== END 2017-06-26 12:20 | disposition home or self-care (01) | DRG 392 ==
LOC: MS 14:03
PROVIDERS: ADMIT Nurse Practitioner Acute Care; ATTEND Nurse Practitioner Acute Care
DX: K57.32 Diverticulitis of large intestine without perforation or abscess without bleeding (principal); I10 Essential (primary) hypertension; R51 Headache; K59.00 Constipation, unspecified; E78.5 Hyperlipidemia, unspecified; K21.9 Gastro-esophageal reflux disease without esophagitis; D64.9 Anemia, unspecified; G25.0 Essential tremor; Z88.5 Allergy status to narcotic agent; Z88.3 Allergy status to other anti-infective agents; Z88.6 Allergy status to analgesic agent; Z88.8 Allergy status to other drugs, medicaments and biological substances; Z87.891 Personal history of nicotine dependence; Z86.73 Personal history of transient ischemic attack (TIA), and cerebral infarction without residual deficits; Z79.82 Long term (current) use of aspirin; Z79.02 Long term (current) use of antithrombotics/antiplatelets

== ENCOUNTER → 2017-06-24 | Outpatient (CLI) | payer BC, MEDICARE ==
--- NOTE | 2017-06-24 13:25 | CT ---
EXAM DESCRIPTION: CT ABDOMEN AND PELVIS WITHOUT AND WITH CONTRAST CLINICAL HISTORY: ABD PAIN COMPARISON: January 05, 2017 TECHNIQUE: CT of the abdomen and pelvis are performed prior to and during IV bolus administration of 100 mL of Isovue 300. FINDINGS: The lung bases are clear of infiltrate. Liver is normal in size and parenchymal appearance. Spleen, pancreas, and kidneys are unremarkable. Extensive sigmoid diverticulosis is noted and there is wall thickening and inflammation in the mid sigmoid particularly surrounding a prominent inflamed diverticulum. There is no free fluid or free air/abscess. IMPRESSION: 1. Uncomplicated early/mild sigmoid diverticulitis This exam was performed according to our departmental dose-optimization program, which includes automated exposure control, adjustment of the mA and/or kV according to patient size and/or use of iterative reconstruction technique. Electronically signed by: Jacob Stinson MD 06/24/2017 1:23 PM [facility]
== END ==
LOC: LAB.O 11:46
PROVIDERS: ATTEND Family Medicine
DX: R10.84 Generalized abdominal pain (principal); K57.92 Diverticulitis of intestine, part unspecified, without perforation or abscess without bleeding

== ENCOUNTER → 2017-07-26 | Outpatient (CLI) | payer BC, MEDICARE | LOC: GMAM 14:30 | PROVIDERS: ATTEND Family Medicine | DX: D50.9 Iron deficiency anemia, unspecified (principal); R10.13 Epigastric pain; R53.83 Other fatigue; E55.9 Vitamin D deficiency, unspecified ==

== ENCOUNTER → 2017-08-26 | Outpatient (CLI) | payer BC, MEDICARE | LOC: GMAM 10:10 | PROVIDERS: ATTEND Family Medicine | DX: E55.9 Vitamin D deficiency, unspecified (principal) ==

== ENCOUNTER → 2017-09-02 | Outpatient (CLI) | payer BC, MEDICARE ==
--- NOTE | 2017-09-02 15:23 | CT ---
EXAM DESCRIPTION: Abdoment/Pelvis w/o Contrast: Computed Tomography. CLINICAL HISTORY: DIVERTICULITIS COMPARISON: Abdominal and pelvic CT scan 06/24/2017. TECHNIQUE: Spiral-axial scans 5.0 mm intervals through the abdomen and pelvis without oral or IV contrast. Coronal and sagittal 2.0 mm reconstructions. Total Exam DLP: 615.76 mGy-cm. This exam was performed according to our departmental CT dose-optimization program which includes automated exposure control, adjustment of the mA and/or kV according to patient size and/or use of iterative reconstruction technique; to reduce radiation dose to as low as reasonably achievable (ALARA). FINDINGS: Lung bases and pleura: Negative. Liver, stomach, spleen, and adrenal glands: Negative. Pancreas, Gallbladder, and Ducts: Surgical clips in the gallbladder fossa with no fluid. Minimal duct dilation. Pancreas negative. Kidneys and Ureters: Unremarkable. Mesentery: No stranding or fascial thickening. No free air or fluid. Aorta: Moderate atherosclerotic calcifications. Minimal narrowing of the distal lumen.. Small Bowel: Negative. Terminal Ileum/Cecum: Unremarkable. Normal caliber of the appendix. No fatty stranding or fluid. Colon: Fecal material proximally less distention distally with multiple diverticula but no evidence of complications. Pelvic Organs: Vaginal cuff negative with no fluid in the cul-de-sac. Spine and Bony Pelvis: Narrowing of the bilateral hip joints and pubic symphysis arthrosis. Grade 2 anterolisthesis L5-S1 with bilateral foraminal stenosis. Grade 1 retrolisthesis L2-3. Abdominal Wall/Back Soft Tissues: Unremarkable. IMPRESSION: Diverticulosis mid and distal colon. No diverticulitis or other complications. Sigmoid diverticulitis seen previously has resolved. Minimal common bile duct dilation is expected with cholecystectomy. Grade 2 anterolisthesis L5-S1 with bilateral foraminal stenosis.. Electronically signed by: Drew Bruner MD 09/02/2017 3:21 PM CDT
== END ==
LOC: CT 14:39
PROVIDERS: ATTEND Family Medicine
DX: K57.93 Diverticulitis of intestine, part unspecified, without perforation or abscess with bleeding (principal)

== ENCOUNTER → 2017-10-29 | Outpatient (CLI) | payer BC, MEDICARE ==
--- NOTE | 2017-11-01 07:56 | MRI ---
EXAM DESCRIPTION: MRI left knee CLINICAL HISTORY: Left knee pain. Pain behind the patella COMPARISON: None. TECHNIQUE: Multiplanar, multisequence MR images of the left knee FINDINGS: Chronic grade 4 chondrosis over the patella spanning about 2 cm transverse with craniocaudal dimension about 1.8 cm. Full-thickness chondral loss, subchondral cystic change and mild edema mostly over the apex and medial facet of the patella. Femoral trochlear cartilage intact No medial or lateral meniscal tear. 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
== END ==
LOC: MRI 11:07
PROVIDERS: ATTEND Family Medicine
DX: M25.562 Pain in left knee (principal); M22.42 Chondromalacia patellae, left knee

== ENCOUNTER → 2018-03-08 | Outpatient (CLI) | payer BC, MEDICARE | LOC: GMAM 10:57 | PROVIDERS: ATTEND Family Medicine | DX: E55.9 Vitamin D deficiency, unspecified (principal) ==

== ENCOUNTER → 2018-08-31 | Outpatient (CLI) | payer MEDICARE, OTHER ==
--- NOTE | 2018-09-01 17:35 | MAM ---
EXAM DESCRIPTION: 3D Screening BILATERAL : Digital Mammography. CLINICAL HISTORY: 72 years Female ANNUAL SCREENING . No complaints. No personal or family history of breast cancer. Childbirth. Postmenopausal 33 years. HRT 5 or more years ago. Lifetime risk of developing breast cancer (Tyrer-Cuzick model)(%): 2.9. COMPARISON: Baseline digital study at this facility. TECHNIQUE: Bilateral CC and MLO projection full-field images, digital tomosynthesis mammographic technique. Bilateral digital 2-D full-field MLO images. CAD not available for tomosynthesis or 2-D images. FINDINGS: The breast parenchymal density pattern is: Scattered areas of fibroglandular density. No skin thickening or nipple retraction. Electronic device partially obscures the medial posterior left breast abutting the pectoral muscle. Small left axillary lymph node. Bilateral solitary microcalcifications. Focal asymmetry in the anterior third of the left breast lateral to the nipple approximately 2 cm from the nipple. Focal asymmetry in the 9:00 position of the medial third of the right breast approximately 4 cm from the nipple and abutting a large calcification. No suspicious macrocalcifications bilaterally. Also small mass density anterior third of the lower inner quadrant of the left breast 2 cm from the nipple and abutting a large calcification. No abnormal microcalcifications. IMPRESSION: Bilateral regions of focal asymmetry and possible mass density, without microcalcifications. BI-RADS CATEGORY: 0 - INCOMPLETE- Need additional imaging evaluation. FOLLOW-UP: Recall for additional imaging: Targeted breast ultrasound of the regions of interest bilateral breasts as indicated.. Written communication concerning the IMPRESSION and Follow-up, will be mailed to the patient and referring health care provider. Electronically signed by: Drew Bruner MD 09/01/2018 5:32 PM CDT
== END ==
LOC: MAMMO 11:47
PROVIDERS: ATTEND Family Medicine
DX: Z12.31 Encounter for screening mammogram for malignant neoplasm of breast (principal)

== ENCOUNTER → 2018-11-21 | Outpatient (CLI) | payer MEDICARE, OTHER | LOC: GMAJS 16:44 | PROVIDERS: ATTEND Physician Assistant | DX: R10.84 Generalized abdominal pain (principal) ==

== ENCOUNTER → 2019-02-16 | Outpatient (CLI) | payer MEDICARE, OTHER ==
--- NOTE | 2019-02-17 15:43 | US ---
EXAM DESCRIPTION: Diagnostic Mammo,Bilateral (accession [id number]), Breast,Bilateral (accession [id number]): Ultrasound CLINICAL HISTORY: 73 yearsFemaleABNORMAL MAMMOGRAM . Bilateral focal asymmetry and mass density left breast. COMPARISON: Lateral targeted breast ultrasound and diagnostic bilateral digital tomosynthesis 09/14/2018. Bilateral screening digital breast tomosynthesis August 2018. TECHNIQUE: Bilateral LM, CC, and MLO projection full-field images, digital mammographic tomosynthesis technique. Bilateral 2-D digital full-field images. LM, CC, and MLO projections. CAD not available . Transcutaneous scanning of the bilateral breasts utilizing thrasher-scale and Doppler modes. Scanning performed by the tank systems maintainer ; observation by Dr. Bruner. FINDINGS: The breast parenchymal density pattern is: Scattered areas of fibroglandular density. No skin thickening or nipple retraction focal asymmetry lateral anterior left breast 2 cm from the nipple 2:00-3:00 position. Mass density 2 to 3 cm from the left nipple at 8:00 and 9:00. Focal asymmetry upper outer quadrant anterior third right breast 3 cm from the nipple near a large calcification. These findings are stable since the prior study. No new focal, stellate mass or density, focal asymmetry , and no suspicious microcalcifications bilaterally. Ultrasound: Right breast 9:00 position 4 cm from the nipple 1.4 x 0.7 x 0.5 cm complex of anechoic cystic structures and hypoechoic tissue, possibly associated with ductal tissue. Mixed posterior acoustic signal mostly enhancement. Nonvascular. Wider than tall orientation. Stable from the prior study. No dominant solid mass, no distinct cyst, no large calcifications. No overlying skin changes. Left breast 2:00 to 3:00 2 cm from the nipple. No dilated ducts. Hypoechoic homogeneous nodule spherical in shape measuring 4.0 x 4.8 mm and not vascular. Associated with slightly dilated ducts. The ducts are not vascular. Mostly posterior acoustic enhancement. Similar appearance on the prior study. 7:30 position 2 cm from the left nipple shows a hypoechoic nodule with circumscribed margins and mixed posterior acoustic shadowing not vascular. 5 x 4 mm. Not well seen on the prior study. Most likely a lymph node. IMPRESSION: Bilateral dilated retroareolar ducts, and cysts. Probable lymph nodes. Stable since the prior study. BI-RADS CATEGORY: 3 - PROBABLY BENIGN. Management: Short interval (6-month) bilateral diagnostic digital 2-D and breast tomosynthesis. Bilateral directed breast ultrasound. The FINDINGS and the FOLLOW-UP plan were reviewed in person with the patient after the examination. Written communication explaining the IMPRESSION and FOLLOW-UP will be mailed to the patient and referring care provider. Electronically signed by: Drew Bruner MD 02/17/2019 3:41 PM CDT
== END ==
LOC: US 10:00
PROVIDERS: ATTEND Family Medicine
DX: R92.8 Other abnormal and inconclusive findings on diagnostic imaging of breast (principal)

== ENCOUNTER 2019-06-08 15:10 | Emergency (ER) | payer MEDICARE, OTHER ==
--- NOTE | 2019-06-08 15:52 | RAD ---
EXAM DESCRIPTION: Chest,1 View CLINICAL HISTORY: weakness COMPARISON: 08 January 2017 TECHNIQUE: AP portable chest FINDINGS: The lungs are clear. There is no infiltrate or effusion. The heart is normal size. A monitoring device is seen to overlie the left chest unchanged. IMPRESSION: Normal portable chest Electronically signed by: Davey Silvestre MD 06/08/2019 3:51 PM [facility]
[2019-06-08 16:35] VITALS: O2SAT 97
--- NOTE | 2019-06-08 17:26 | ED.PDOC ---
History of Present Illness - General Chief Complaint: General Stated Complaint: weakness, shaking and "not feeling right" Time Seen by Provider: 06/08/19 15:33 Source: patient, RN notes reviewed, Vital Signs reviewed, family - Daughter Exam Limitations: no limitations - History of Present Illness Initial Comments: Patient is a 73-year-old white female who presents with complaints of generalized weakness and fatigue. This started earlier today on her way into town. Patient denies any nausea or vomiting. She denies any chest pain, shortness of breath, blurry vision, dizziness, diarrhea. Nothing seems to bring on the fatigue or make it better or worse. Comes and goes of its own accord. Last about 30 minutes when it starts. Timing/Duration: 4-6 hours Severity: moderate Improving Factors: nothing Worsening Factors: nothing Associated Symptoms: denies symptoms Allergies/Adverse Reactions: Allergies Citalopram [From Celexa] Allergy (Verified 06/24/17 15:40) Rash Codeine Allergy (Verified 06/24/17 15:40) Other itching. Can take Tylenol #3, though, per patient's pharmacist. The Codeine chemical makeup is different. Hydrocodone [From [place]] Allergy (Verified 06/24/17 15:40) Metoclopramide [From Reglan] Allergy (Verified 06/24/17 15:40) Other Causes severe shaking Tramadol Allergy (Verified 06/24/17 15:40) Other Metronidazole [From Flagyl] Adverse Reaction (Verified 06/24/17 15:40) Nausea Home Medications: Ambulatory Orders Clopidogrel Bisulfate [Plavix] 75 mg PO DAILY 03/30/13 Ferrous Gluconate [Fergon] 240 mg PO DAILY 03/30/13 Rosuvastatin Calcium [Crestor] 20 mg PO DAILY 03/30/13 Sucralfate 1 gm PO ACHS 03/30/13 Valsartan [Diovan] 160 mg PO DAILY 03/30/13 cloNAZepam [Klonopin] 0.5 mg PO BEDTIME 03/30/13 ALPRAZolam [Xanax] 0.25 mg PO TID PRN 01/07/17 Diphenhydramine-Acetaminophen [Tylenol Pm Extra Strength 500-25 mg] 1 tab PO BEDTIME #0 01/07/17 Aspirin 325 mg PO DAILY 06/24/17 Donepezil Hydrochloride [Aricept] 10 mg PO BEDTIME 06/24/17 Ezetimibe [Zetia] 10 mg PO BEDTIME 06/24/17 Misc Natural Products [Osteo Bi-Flex Joint Shiel] 2 tab PO DAILY 06/24/17 Cotter-3 Fatty Acids [Cotter 3 1000 mg] 1 cap PO DAILY 06/24/17 Pantoprazole Tablet [Protonix] 40 mg PO BID 06/24/17 Acetaminophen W/ Codeine [Tylenol W/ CODEINE #3] 1 ea PO Q4H #30 06/26/17 Bifidobacterium Infantis [Align] 4 mg PO BID cap 06/26/17 Clindamycin HCl [Cleocin] 600 mg PO Q8H #42 cap 06/26/17 Levofloxacin [Levaquin] 750 mg PO DAILY #7 tablet 06/26/17 Ondansetron HCl [Zofran] 4 mg PO Q4H #30 tab 06/26/17 Review of Systems - Review of Systems Constitutional: States: see HPI, malaise EENTM: States: no symptoms reported Respiratory: States: no symptoms reported Cardiology: States: no symptoms reported Gastrointestinal/Abdominal: States: no symptoms reported Genitourinary: States: no symptoms reported Musculoskeletal: States: no symptoms reported Skin: States: no symptoms reported Neurological: States: see HPI, weakness Endocrine: States: no symptoms reported Hematologic/Lymphatic: States: no symptoms reported All other Systems: Reviewed and Negative Past Medical History (General) - Patient Medical History Hx Seizures: No Hx Stroke: Yes - TIAs Hx Asthma: No Hx of COPD: No Hx Cardiac Disorders: Yes - high cholesterol, restless leg syndrome Hx Congestive Heart Failure: No Hx Pacemaker: No Hx Hypertension: Yes Hx Diabetes: No Hx Cancer: No Hx Hepatitis C: No Hx MRSA: No Surgical History: cholecystectomy, Hysterectomy - Vaccination History Hx Tetanus, Diphtheria Vaccination: Yes Hx Influenza Vaccination: Yes Hx Pneumococcal Vaccination: Yes Immunizations Up to Date: Yes - Social History Hx Tobacco Use: No Hx Alcohol Use: No Hx Substance Use: No Hx Substance Use Treatment: No Hx Depression: No Hx Physical Abuse: No Hx Emotional Abuse: No Family Medical History - Family History Mother Family History: No Known Living Status: Physical Exam - Physical Exam General Appearance: Alert, Anxious, Comfortable, Well Developed, Well Groomed, Well Hydrated, Well Nourished Eye Exam: bilateral normal Ears, Nose, Throat: hearing grossly normal, normal ENT inspection Neck: non-tender, full range of motion, supple, normal inspection Respiratory: chest non-tender, lungs clear, normal breath sounds, no respiratory distress, no accessory muscle use Cardiovascular/Chest: normal peripheral pulses, regular rate, rhythm, no edema, no gallop, no JVD, no murmur Peripheral Pulses: radial,right: 2+ Gastrointestinal/Abdominal: normal bowel sounds, non tender, soft, no organomegaly, no pulsatile mass Back Exam: normal inspection, no CVA tenderness Extremity: normal range of motion, non-tender, normal inspection, no pedal edema, no calf tenderness 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 06/08/19 19:16 Patient symptoms of all resolved while here. She feels much better after the IV fluids. Labs are all within normal limits and patient is desirous of discharge home. It is possible patient had a small TIA as this feeling of malaise and fatigue resolved, but I think it may be more likely due to dehydration. Plan on discharge home. Patient has a follow-up appointment tomorrow with her neurologist in [place]. I have given the patient and her family discharge instructions and return warnings. They voiced understanding and agreement with the plan of care. Jarad Purdy M.D. #[id number] - Results/Orders Results/Orders: EKG performed on 08 June 2019 at 59 acute hours: Normal sinus rhythm at 80 bpm, normal axis deviation, ST changes that are nonspecific, abnormal EKG. No comparison EKG available. 06/08/19 15:33 Telemetry ONCE Sodium Chloride 0.9% (Flush) [Saline Flush Syringe] 3 ml IV PRN PRN 06/08/19 15:45 EKG STAT 06/08/19 16:30 Urine Culture Stat 06/09/19 09:00 Pulse Ox Daily Laboratory Results - last 24 hr 06/08/19 06/08/19 06/08/19 15:30 16:30 18:10 WBC 7.5 RBC 4.20 Hgb 12.8 Hct 37.9 MCV 90.2 MCH 30.4 MCHC 33.7 RDW 13.0 Plt Count 317 MPV 6.6 L Absolute Neuts (auto) 5.50 Absolute Lymphs (auto) 1.40 Absolute Monos (auto) 0.50 Absolute Eos (auto) 0.10 Absolute Basos (auto) 0.00 Neutrophils % 73.4 Lymphocytes % 19.1 L Monocytes % 6.0 Eosinophils % 0.9 L Basophils % 0.6 PT 9.2 INR < 1.00 PTT (SP) 23.1 Sodium 139 Potassium 3.7 Chloride 103 Carbon Dioxide 27 Anion Gap 12.7 BUN 12 Creatinine 0.65 BUN/Creatinine Ratio 18.5 Random Glucose 94 Serum Osmolality 277.0 Calcium 10.1 Magnesium 2.4 Total Bilirubin 0.5 Direct Bilirubin < 0.1 Indirect Bilirubin 0.4 AST 31 ALT 23 Alkaline Phosphatase 64 Creatine Kinase 126 110 CK-MB (CK-2) 2.0 1.7 CK-MB (CK-2) % Not Reportable Not Reportable Troponin I < 0.02 < 0.02 B-Natriuretic Peptide 11.6 Serum Total Protein 8.4 H Albumin 4.5 Urine Color Yellow Urine Appearance Clear Urine pH 6.5 Ur Specific Hamilton 1.015 Urine Protein Negative Urine Glucose (UA) Negative Urine Ketones Negative Urine Blood Trace-intact H Urine Nitrite Negative Urine Bilirubin Negative Urine Urobilinogen 0.2 Ur Leukocyte Esterase Small H Urine RBC 0-1 Urine WBC 1-3 Ur Epithelial Cells 1-3 Urine Bacteria Rare Departure - Departure Clinical Impression: Malaise and fatigue, TIA (transient ischemic attack) Time of Disposition: 19:19 Disposition: Discharge to Home or Self Care Condition: Good Departure Forms: ED Discharge - Pt. Copy, Patient Portal Self Enrollment Instructions: Transient Ischemic Attack (DC) Referrals: Dhruv Barreto MD [Primary Care Provider] - 1-2 Days Home Medications: Ambulatory Orders Clopidogrel Bisulfate [Plavix] 75 mg PO DAILY 03/30/13 Ferrous Gluconate [Fergon] 240 mg PO DAILY 03/30/13 Rosuvastatin Calcium [Crestor] 20 mg PO DAILY 03/30/13 Sucralfate 1 gm PO ACHS 03/30/13 Valsartan [Diovan] 160 mg PO DAILY 03/30/13 cloNAZepam [Klonopin] 0.5 mg PO BEDTIME 03/30/13 ALPRAZolam [Xanax] 0.25 mg PO TID PRN 01/07/17 Diphenhydramine-Acetaminophen [Tylenol Pm Extra Strength 500-25 mg] 1 tab PO BEDTIME #0 01/07/17 Aspirin 325 mg PO DAILY 06/24/17 Donepezil Hydrochloride [Aricept] 10 mg PO BEDTIME 06/24/17 Ezetimibe [Zetia] 10 mg PO BEDTIME 06/24/17 Misc Natural Products [Osteo Bi-Flex Joint Shiel] 2 tab PO DAILY 06/24/17 Cotter-3 Fatty Acids [Cotter 3 1000 mg] 1 cap PO DAILY 06/24/17 Pantoprazole Tablet [Protonix] 40 mg PO BID 06/24/17 Acetaminophen W/ Codeine [Tylenol W/ CODEINE #3] 1 ea PO Q4H #30 06/26/17 Bifidobacterium Infantis [Align] 4 mg PO BID cap 06/26/17 Clindamycin HCl [Cleocin] 600 mg PO Q8H #42 cap 06/26/17 Levofloxacin [Levaquin] 750 mg PO DAILY #7 tablet 06/26/17 Ondansetron HCl [Zofran] 4 mg PO Q4H #30 tab 06/26/17 Additional Instructions: Follow-up with your neurologist in the morning.
[2019-06-08] MEDS: SODIUM CHLORIDE 0.9% (FLUSH) 10 ML SYG IV PRN (18:34)
[2019-06-08 19:38] VITALS: BP 157/72; TEMP 97.8
== END 2019-06-08 19:38 | disposition home or self-care (01) ==
LOC: ER 15:10
DX: G45.9 Transient cerebral ischemic attack, unspecified (principal); R53.83 Other fatigue; R53.81 Other malaise; E78.00 Pure hypercholesterolemia, unspecified; I10 Essential (primary) hypertension; Z79.899 Other long term (current) drug therapy; Z79.82 Long term (current) use of aspirin; Z88.8 Allergy status to other drugs, medicaments and biological substances; Z88.5 Allergy status to narcotic agent

== ENCOUNTER → 2019-06-12 | Outpatient (CLI) | payer MEDICARE, OTHER | LOC: GMAM 14:20 | PROVIDERS: ATTEND Family Medicine | DX: R53.83 Other fatigue (principal) ==

== ENCOUNTER → 2019-11-30 | Outpatient (CLI) | payer MEDICARE, OTHER | LOC: GMAM 10:48 | PROVIDERS: ATTEND Family Medicine | DX: D64.9 Anemia, unspecified (principal); E55.9 Vitamin D deficiency, unspecified ==

== ENCOUNTER → 2019-12-13 | Outpatient (CLI) | payer MEDICARE, OTHER ==
--- NOTE | 2019-12-15 09:11 | US ---
EXAM DESCRIPTION: 3D Diagnostic, Bilateral (accession [id number]), Breast,Bilateral (accession [id number]): Ultrasound CLINICAL HISTORY: 73 yearsFemaleABNORMAL MAMMOGRAM 6 month follow-up BI-RADS 3 bilateral breasts. Focal asymmetry in mass density in the left breast. Focal asymmetry right breast. No complaints. Menarche age 14. Childbirth age 17. Menopause age 39. HRT 5 or more years ago. Lifetime risk of developing breast cancer (Tyrer-Cuzick model)(%): 2.7. COMPARISON: Diagnostic digital breast tomosynthesis and bilateral breast ultrasound February 2019. Bilateral breast directed ultrasound September 2018. TECHNIQUE: Bilateral LM and CC projection full-field images, digital tomosynthesis technique. Bilateral 2-D digital full-field images: LM and CC projections. CAD available for 2-D images.. Transcutaneous scanning of the bilateral breasts utilizing thrasher-scale and Doppler modes. Scanning performed by the animal laboratory technician ; observation by Dr. Bruner. FINDINGS: The breast parenchymal density pattern is: Scattered areas of fibroglandular density. No skin thickening or nipple retraction electronic loop recorder again partially obscuring the posterior medial left breast. Bilateral coarse calcifications more on the right stable. Mammographic findings of focal asymmetry and no mass density are less prominent compared to the prior study. No suspicious microcalcifications. No new focal, stellate mass or density, focal asymmetry Ultrasound: Bilateral scanning of the regions of interest seen on the prior study, and the retroareolar breasts. Complex cystic structure again noted at the 9:00 position of the right breast 4 cm from the nipple. Partial acoustic enhancement posteriorly and partial acoustic shadowing. Hypoechoic nodule measuring 6.8 x 4.9 mm and is stable with partial shadowing and enhancement. Nonvascular. Another complex group of tissues appears to have ducts cysts and a solid nodule. This nodule demonstrates and shadowing and mostly posterior enhancement and is not vascular. Dimensions are 4.0 x 3.5 mm, and appears connected to the ducts. No new dominant solid mass or fluid collection. IMPRESSION: BI-RADS CATEGORY: 3 - PROBABLY BENIGN. RECOMMENDATIONS: FOLLOW-UP: Short interval (6-month) bilateral diagnostic digital breast tomosynthesis. Followed by directed bilateral breast ultrasound.. The FINDINGS and the FOLLOW-UP plan were reviewed in person with the patient after the examination. Written communication explaining the IMPRESSION and FOLLOW-UP will be mailed to the patient and referring care provider Electronically signed by: Drew Bruner MD 12/15/2019 9:09 AM CDT
== END ==
LOC: MAMMO 09:50
PROVIDERS: ATTEND Family Medicine
DX: N60.01 Solitary cyst of right breast (principal); R92.1 Mammographic calcification found on diagnostic imaging of breast
CPT/HCPCS: 76641; 77066; G0279

== ENCOUNTER → 2020-04-25 | Outpatient (CLI) | payer MEDICARE, OTHER | LOC: GMAM 10:34 | PROVIDERS: ATTEND Family Medicine | DX: D64.9 Anemia, unspecified (principal); E55.9 Vitamin D deficiency, unspecified; E78.2 Mixed hyperlipidemia; I10 Essential (primary) hypertension ==